=== PATIENT | female | born 1960 | race African-American/Black ===

== ENCOUNTER 2018-01-17 14:29 | Emergency (ER) | payer BC ==
[~2018-01-17] VITALS: Ht 157.5 cm; Wt 58.0 kg
[~2018-01-17 14:29] MED LIST: BACTRIM DS1 TAB OR; CEPHALEXIN500 MG OR; CLONIDINE0.1 MG OR; DOXYCYC MONO100 M1 PO; IBUPROFEN800 MG PO; LISINOPRIL10 MG PO; LORTAB5 OR; MEDDOSEPAK PO; NAPROSYN500 MG PO; ROBITUSSIN AC OR; no home meds
[2018-01-17] MEDS ORDERED: TERBINAFINE250 M1 PO (14:39)
[2018-01-17] MEDS ORDERED: BACTRIM DS1 TAB PO (14:50)
[2018-01-17] MEDS ORDERED: CEPHALEXIN500 M1 PO (14:50)
[2018-01-17 15:50] VITALS: BP 135/77
== END 2018-01-17 16:04 | disposition home or self-care (01) | DRG 563 ==
LOC: ED 14:29
DX: S46.912A Strain of unspecified muscle, fascia and tendon at shoulder and upper arm level, left arm, initial encounter (principal); L03.115 Cellulitis of right lower limb; B95.61 Methicillin susceptible Staphylococcus aureus infection as the cause of diseases classified elsewhere; M25.512 Pain in left shoulder; X50.0XXA Overexertion from strenuous movement or load, initial encounter; Y93.89 Activity, other specified; Y92.89 Other specified places as the place of occurrence of the external cause

== ENCOUNTER 2019-12-07 16:29 | Emergency (ER) | payer BC ==
[~2019-12-07] VITALS: Ht 157.5 cm; Wt 56.8 kg
[~2019-12-07 16:29] MED LIST changes: +BACTRIM DS1 TAB PO; +CEPHALEXIN500 M1 PO; +TERBINAFINE250 M1 PO
[2019-12-07 17:11] LABS: HEMATOCRIT 40.4 % (37.0-47.0); HEMOGLOBIN 12.8 g/dl (12.0-16.0); MEAN CELL VOLUME 87.4 fL CALC (80.0-100.0); MEAN CORPUSCULAR HGB 27.7 pG CALC (26.0-32.0); MEAN CORPUSCULAR HGB CONC 31.7 g/dL CAL (32.0-36.0); NEUT# 1.29 thou/uL (2.00-7.15); RED BLOOD COUNT 4.62 mill/uL (4.20-5.60); RED CELL DISTRI WIDTH 11.8 % (11.5-15.5)
[2019-12-07 17:29] LABS: ALBUMIN 4.3 g/dL (3.2-5.0); ALKALINE PHOSPHATASE 103 u/l (38-126); ANION GAP 10 (6-22 (CALC)); BILIRUBIN, TOTAL 0.7 mg/dL (0.0-1.4); BUN 12 mg/dL (7-17); BUN/CREATININE RATIO 18 (12-20 (CALC)); CARBON DIOXIDE 28 mmol/l (22-30); CHLORIDE 103 mmol/l (95-108); CREATININE 0.7 mg/dL (0.5-1.0); GFR > 60 ML/MIN (>=60 (CALC)); GFR FOR AFR.AMER. > 60 ML/MIN (>=60 (CALC)); POTASSIUM 3.7 mmol/l (3.5-5.1); SGOT/AST 30 u/l (14-36); SODIUM 137 mmol/l (137-146); TOTAL PROTEIN 7.2 g/dL (6.3-8.2)
[2019-12-07 19:45] VITALS: BP 130/70
== END 2019-12-07 19:45 | disposition home or self-care (01) | DRG 316 ==
LOC: ED 16:29
PROVIDERS: Student in an Organized Health Care Education/Training Program
DX: R09.89 Other specified symptoms and signs involving the circulatory and respiratory systems (principal); I10 Essential (primary) hypertension
CPT/HCPCS: Q9967

== ENCOUNTER 2019-12-09 14:10 | Emergency (ER) | payer BC ==
[~2019-12-09] VITALS: Ht 157.5 cm; Wt 56.8 kg
[2019-12-09 16:25] VITALS: BP 178/88
== END 2019-12-09 16:25 | disposition home or self-care (01) | DRG 316 ==
LOC: ED 14:10
DX: R09.89 Other specified symptoms and signs involving the circulatory and respiratory systems (principal)

== ENCOUNTER 2021-02-27 11:24 | Emergency (ER) | payer BC | END 2021-02-27 11:35 | disposition left against medical advice (07) | DRG 951 | LOC: ED 11:24 → LWOBS 11:35 | DX: Z53.21 Procedure and treatment not carried out due to patient leaving prior to being seen by health care provider (principal) ==

== ENCOUNTER 2022-04-03 19:32 | Emergency (ER) | payer BC ==
[~2022-04-03] VITALS: Ht 157.5 cm; Wt 55.0 kg
[2022-04-03 19:54] VITALS: BP 144/89
[2022-04-03 20:00] VITALS: BP 160/100
[2022-04-03 20:10] LABS: BASO% 0.3 % (0-3); EOS% 0.7 % (0-8); HEMATOCRIT 43.2 % (37.0-47.0); HEMOGLOBIN 14.4 g/dl (12.0-16.0); IMMATURE GRANULOCYTES 0.1 % (0.0-5.0); LYMPH% 44.6 % (15-41); MEAN CELL VOLUME 90.6 fL CALC (80.0-100.0); MEAN CORPUSCULAR HGB 30.2 pG CALC (26.0-32.0); MEAN CORPUSCULAR HGB CONC 33.3 g/dL CAL (32.0-36.0); MONO% 7.1 % (2-13); NEUT# 3.25 thou/uL (2.00-7.15); NEUT% 47.2 % (42-76); RED BLOOD COUNT 4.77 mill/uL (4.20-5.60); RED CELL DISTRI WIDTH 11.9 % (11.5-15.5)
[2022-04-03 20:15] VITALS: BP 171/103
[2022-04-03 20:21] LABS: ALBUMIN 4.7 g/dL (3.2-5.0); ALKALINE PHOSPHATASE 88 u/l (38-126); ANION GAP 12 (6-22 (CALC)); BILIRUBIN, TOTAL 0.9 mg/dL (0.0-1.4); BUN 18 mg/dL (8-23); BUN/CREATININE RATIO 18 (12-20 (CALC)); CARBON DIOXIDE 30 mmol/l (22-30); CHLORIDE 103 mmol/l (95-108); CPK 162 u/l (30-165); GFR FOR AFR.AMER. > 60 ML/MIN (>=60 (CALC)); GFR OTHER RACES 56 ML/MIN (>=60 (CALC)); POTASSIUM 4.1 mmol/l (3.5-5.1); SGOT/AST 36 u/l (9-36); SODIUM 141 mmol/l (137-146); TOTAL PROTEIN 7.7 g/dL (6.3-8.2)
[2022-04-03 20:30] VITALS: BP 177/112
[2022-04-03 20:36] LABS: MYOGLOBIN 50 ng/mL (0 - 62)
[2022-04-03 22:35] VITALS: BP 141/96
[2022-04-03 22:40] VITALS: BP 141/96
== END 2022-04-03 22:40 | disposition home or self-care (01) | DRG 605 ==
LOC: ED 19:32
PROVIDERS: Family Medicine
DX: S20.219A Contusion of unspecified front wall of thorax, initial encounter (principal); V43.62XA Car passenger injured in collision with other type car in traffic accident, initial encounter